=== PATIENT | female | born 1990 | race Caucasian/White ===

== ENCOUNTER 2016-11-28 10:28 | Emergency (ER) | payer MEDICAID, OTHER ==
--- NOTE | 2016-11-28 10:56 | EDPHY ---
H & P Stated Complaint: R Shoulder pain "dishes fell on" - Personal History LMP (Females 10-55): 15-21 Days Ago Current Tetanus Diphtheria and Acellular Pertussis (TDAP): Yes Tetanus Vaccine Date: Does not immunize - Medical/Surgical History Hx Asthma: No Hx Chronic Respiratory Disease: No Hx Diabetes: No Hx Cardiac Disease: No Hx Renal Disease: No Hx Cirrhosis: No Hx Alcoholism: No Hx HIV/AIDS: No Hx Splenectomy or Spleen Trauma: No Other PMH: PMH- bipolar, anxiety, hemrrhoids, depression, panic disorder. PSH- adnoids - Social History Smoking Status: Former smoker Time Seen by Provider: 11/28/16 10:43 HPI/ROS: CHIEF COMPLAINT: Right shoulder pain and bilateral foot laceration HISTORY OF PRESENT ILLNESS: 26-year-old female with up-to-date tetanus via private vehicle in the ER after her kitchen cabinet fell onto her right clavicle and shoulder and subsequently dishes and glasses broke and she sustained multiple puncture wounds to her feet stepped on glass when she was barefoot. Occurred shortly prior to arrival. Regarding her right shoulder she has reproducible pain with range of motion. No paresthesia. No head injury. No C-spine pain or injury. No back pain or injury. No dyspnea. PHYSICAL EXAM (Prior to examination, patient consented to physical exam, hands were washed and my usual and customary physical exam procedures followed) 1) GENERAL: Well-developed, well-nourished, alert and oriented. Appears uncomfortable 2) HEAD: Normocephalic, atraumatic 3) HEENT: Pupils equal, round, reactive to light bilaterally. Sclera anicteric. 4) NECK: Full range of motion, no meningeal signs. 5) MUSCULOSKELETAL: Right upper extremity: Erythema to the mid clavicle with associated tenderness to the mid clavicle and shoulder. No step-off deformity. Distal radial ulnar median nerve function intact with brisk capillary refill brisk pulses. Bilateral feet have multiple small puncture wounds including a puncture wound to the plantar aspect of her left foot. No active bleeding. No signs of infection. No underlying osseous pain. (Jeffrey,Liseth Palacios) Constitutional: Initial Vital Signs Temperature (C) 37.1 C 11/28/16 10:29 Heart Rate 107 H 11/28/16 10:29 Respiratory Rate 16 11/28/16 10:29 Blood Pressure 124/81 H 11/28/16 10:29 O2 Sat (%) 94 11/28/16 10:29 O2 Delivery Mode Room Air Allergies/Adverse Reactions: acetaminophen Allergy (Intermediate, Verified 11/28/16 10:34) Rash Home Medications: Medication Instructions Recorded Alprazolam 01/24/14 Cymbalta 01/24/14 Trileptal 01/24/14 Ondansetron Odt [Zofran Odt] 4 mg PO Q4PRN #8 tab 12/12/14 ALPRAZolam [Xanax] 11/28/16 Oxycodone HCl [Oxyir] 5 mg PO Q6 PRN #10 capsule 11/28/16 Medical Decision Making - Diagnostics Imaging: Imaging Impressions Shoulder X-Ray 11/28/16 10:44 Impression: Possible chronic biceps tendinitis. Otherwise negative. Foot X-Ray 11/28/16 10:53 Impression: Normal. No radiopaque glass identified. 2. Left Foot , 3 views History:Pain Findings: No fracture or malalignment is identified. No arthritis or soft tissue calcification or ossification. No erosive change. Overall mineralization is normal. There is a bipartite tibial sesamoid bone beneath the first metatarsal head. Impression: No source for pain identified. Foot X-Ray 11/28/16 10:53 Impression: Normal. No radiopaque glass identified. 2. Left Foot , 3 views History:Pain Findings: No fracture or malalignment is identified. No arthritis or soft tissue calcification or ossification. No erosive change. Overall mineralization is normal. There is a bipartite tibial sesamoid bone beneath the first metatarsal head. Impression: No source for pain identified. X-ray of the shoulder, bilateral feet interpreted by myself shows no definitive fracture, no radiopaque foreign body. (Liseth Murphy) Procedures: Procedure: Splint an upper extremity sling splint was applied by ER refinish technician. After application of the splint I returned and re-examined the patient. The splint was adequately immobilizing the joint and distal to the splint the patient's circulation and sensation were intact. Patient shows no signs of compartment syndrome. Was given orthopedic precautions. (Liesth Murphy) ED Course/Re-evaluation: Re-evaluation with serial exams. Discussed limitations of x-ray in the diagnosis of shoulder injury. Informed that non osseous injury not ruled out. Her wounds have been cleansed. She has been fitted for sling. Recommend orthopedic follow-up. Usual customary wound orthopedic precautions provided to the patient. She and her partner feel comfortable being discharged. (Liseth Murphy) I did not see this patient while she was in the emergency department. However her care was discussed with the PA while the patient was in department. I agree with treatment plan and management (Renzo Greenwood) - Data Points Medications Given: Discontinued Medications Ibuprofen (Motrin) 600 mg PO EDNOW ONE Stop: 11/28/16 11:05 Last Admin: 11/28/16 11:26 Dose: 600 mg Departure - Departure Disposition: Home, Routine, Self-Care Clinical Impression: Bilateral foot abrasions Right shoulder injury Qualifiers: Encounter type: initial encounter Qualified Code(s): S49.91XA - Unspecified injury of right shoulder and upper arm, initial encounter Condition: Good Instructions: Shoulder Sprain (ED), Abrasion (ED) Additional Instructions: Return to the ER immediately if you experience discoloration, have worsening pain, numbness, tingling, or any other symptoms that concern you. If you received x-rays in the emergency department today, be advised, that ligamentous , tendon, muscular, and other non-bony injury cannot be fully ruled out. Try to keep your affected extremity elevated above the level of your chest, and keep cold packs on the affected area, for the next 48 hours. Referrals: Bakari Swartz MD [Medical Doctor] - 5-7 days, call for appt. Prescriptions: Oxycodone HCl [Oxyir] 5 mg PO Q6 PRN #10 capsule PRN Reason: Pain, Severe Able To Take Po
[2016-11-28] MEDS ORDERED: IBUPROFEN 600 MG TAB PO ONE (11:04)
[2016-11-28 12:06] VITALS: BP 102/76; PULSE 94; RESP 18; TEMP 97.9; O2SAT 93
== END 2016-11-28 12:05 | disposition home or self-care (01) ==
DX: S90.812A Abrasion, left foot, initial encounter (principal); S90.811A Abrasion, right foot, initial encounter; S49.91XA Unspecified injury of right shoulder and upper arm, initial encounter; Z87.891 Personal history of nicotine dependence; W25.XXXA Contact with sharp glass, initial encounter; Y92.090 Kitchen in other non-institutional residence as the place of occurrence of the external cause
CPT/HCPCS: A4565

== ENCOUNTER 2017-06-22 11:15 | Emergency (ER) | payer MEDICAID ==
[2017-06-22 11:22] VITALS: BP 131/78; PULSE 94; RESP 18; TEMP 98.2; O2SAT 98
--- NOTE | 2017-06-22 13:01 | EDPHY ---
H & P Time Seen by Provider: 06/22/17 12:12 HPI/ROS: CHIEF COMPLAINT: Hemorrhoids HISTORY OF PRESENT ILLNESS: 27-year-old female presents with chief complaint persistent hemorrhoids. She has had hemorrhage for the past 5 years. She has associated pain with defecation and occasional bleeding when she has a bowel movement. She has been unable to obtain a specialist consultation, so presents to the emergency department for referral to a surgeon. She is vague lower abdominal discomfort today, somewhat similar to her usual discomfort. No fever , vomiting or constipation REVIEW OF SYSTEMS: Constitutional: No fever, no chills Eyes: No visual changes ENT: No sore throat Respiratory: No cough, no shortness of breath Cardiac: No chest pain Gastrointestinal: No nausea, no vomiting Genitourinary: No hematuria, no dysuria Musculoskeletal: No leg pain or swelling Skin: No rash Neurological: No headache, no weakness Psychiatric: No depression Past Medical/Surgical History: Denies Social History: Smoking Status: Former smoker Physical Exam: General Appearance: Alert, pleasant Eyes: Pupils equal and round, no conjunctival pallor ENT, Mouth: Mucous membranes moist Neck: Normal inspection Respiratory: Lungs are clear to auscultation Cardiovascular: Regular rate and rhythm Gastrointestinal: Abdomen is soft and nontender Rectal: Non thrombosed hemorrhoids present, no active bleeding or signs of recent bleeding. No anal fissure. Neurological: A&O, nonfocal, normal gait Skin: Warm and dry Extremities: normal inspection Psychiatric: Mood and affect normal Constitutional: Initial Vital Signs Temperature (C) 36.8 C 06/22/17 11:19 Heart Rate 94 06/22/17 11:19 Respiratory Rate 18 06/22/17 11:19 Blood Pressure 131/78 H 06/22/17 11:19 O2 Sat (%) 98 06/22/17 11:19 O2 Delivery Mode Room Air Allergies/Adverse Reactions: acetaminophen Allergy (Intermediate, Verified 06/22/17 11:18) Rash Home Medications: Medication Instructions Recorded Alprazolam 01/24/14 Cymbalta 01/24/14 Trileptal 01/24/14 ALPRAZolam [Xanax] 11/28/16 Departure - Departure Disposition: Home, Routine, Self-Care Clinical Impression: Hemorrhoids Qualifiers: Hemorrhoid type: first degree Qualified Code(s): K64.0 - First degree hemorrhoids Condition: Good Instructions: Hemorrhoids (ED), Rectal Bleeding (ED) Additional Instructions: Return for worsening symptoms or any concerns. Referrals: Lisandro Reis MD [Medical Doctor] - As per Instructions (Call to make an appointment.)
== END 2017-06-22 13:10 | disposition home or self-care (01) ==
DX: K64.0 First degree hemorrhoids (principal); Z87.891 Personal history of nicotine dependence

== ENCOUNTER 2017-07-15 22:37 | Observation (INO) | payer MEDICAID ==
--- NOTE | 2017-07-15 23:04 | EDPHY ---
H & P Stated Complaint: hemmorroid removal today, still in pain after 6 oxy tabs Time Seen by Provider: 07/15/17 22:51 HPI/ROS: Chief Complaint: Rectal pain HPI: 27-year-old woman who status place hemorrhoidectomy and fissure repair today by Dr. Reis. Patient states that the pain has been unbearable. She has taken 7 oxycodone and for ibuprofen without any relief. She has also been using warm tells to the area. No fevers or chills. No nausea or vomiting. Has light about of bleeding. No abdominal pain. ROS: 10 point Review of Systems is negative except as noted in the HPI. PMH: Depression Social History: No smoking, no alcohol, no recreational drug use Family History: non-contributory Physical Exam: Gen: Awake, Alert, No Distress HEENT: Nose: no rhinorrhea Eyes: PERRLA, EOMI Mouth: Moist mucosa Neck: Supple, no JVD Chest: nontender, lungs clear to auscultation Heart: S1, S2 normal, no murmur Abd: Soft, non-tender, no guarding Rectal: She has got ecchymosis and sutures in place from the repair. No active bleeding. There are no areas of fluctuance. There is no purulent discharge. There is no dehiscence. Back: no CVA tenderness, no midline tenderness Ext: no edema, non-tender Skin: no rash Neuro: CN II-XII intact, Sensation grossly intact, Strength 5/5 in bilateral upper and lower extremities - Personal History LMP (Females 10-55): 8-14 Days Ago Current Tetanus/Diphtheria Vaccine: Yes Current Tetanus Diphtheria and Acellular Pertussis (TDAP): Yes Tetanus Vaccine Date: Does not immunize - Medical/Surgical History Hx Asthma: No Hx Chronic Respiratory Disease: No Hx Diabetes: No Hx Cardiac Disease: No Hx Renal Disease: No Hx Cirrhosis: No Hx Alcoholism: No Hx HIV/AIDS: No Hx Splenectomy or Spleen Trauma: No Other PMH: PMH- bipolar, anxiety, hemrrhoids removal, depression, panic disorder ,. PSH- adnoids - Social History Smoking Status: Former smoker Constitutional: Initial Vital Signs Temperature (C) 36.9 C 07/15/17 22:39 Heart Rate 91 07/15/17 22:39 Respiratory Rate 18 07/15/17 22:39 Blood Pressure 101/89 H 07/15/17 22:39 O2 Sat (%) 100 07/15/17 22:39 O2 Delivery Mode Room Air Allergies/Adverse Reactions: acetaminophen Allergy (Intermediate, Verified 07/15/17 22:42) Rash latex Allergy (Verified 07/15/17 22:42) Home Medications: Medication Instructions Recorded Alprazolam 01/24/14 Cymbalta 01/24/14 Trileptal 01/24/14 ALPRAZolam [Xanax] 11/28/16 Medical Decision Making ED Course/Re-evaluation: Patient has had no relief with topical lidocaine or with IV morphine. Pain is still about any of at 10. I have discussed with Dr. Rosina Menendez, on-call for Dr. Reis. She will admit the patient to her service for pain control. - Data Points Medications Given: Discontinued Medications Lidocaine (Lidocaine 2% Jelly) 1 so TP EDNOW ONE Stop: 07/15/17 23:22 Last Admin: 07/15/17 23:25 Dose: 3 ml Morphine Sulfate (Morphine) 4 mg IVP EDNOW ONE Stop: 07/15/17 23:50 Last Admin: 07/16/17 00:19 Dose: 4 mg Departure - Departure Disposition: [facility] Inpatient Acute Clinical Impression: Postoperative pain Condition: Fair Referrals: NONE *PRIMARY CARE P,. [Primary Care Provider] - As per Instructions
[2017-07-15] MEDS ORDERED: LIDOCAINE 2% JELLY 5 ML TUBE TP ONE (23:21)
[2017-07-16] MEDS ORDERED: ZOLPIDEM TARTRATE 5 MG TAB PO PRN (00:41)
[2017-07-16] MEDS ORDERED: HYDROmorphONE/DILAUDID 1 MG/ML INJ IVP PRN (00:42)
[2017-07-16] MEDS ORDERED: LORazepam 0.5 MG TAB PO PRN (00:43)
[2017-07-16] MEDS ORDERED: ONDANSETRON 4 MG/2 ML VIAL IVP PRN (00:43)
[2017-07-16] MEDS ORDERED: LACTULOSE 20 GM/30 ML UDCUP PO PRN (00:43)
[2017-07-16] MEDS ORDERED: BISACODYL 10 MG SUPP PR PRN (00:43)
[2017-07-16] MEDS ORDERED: POLYETHYLENE GLYCOL 3350 17 GM PKT PO PRN (00:43)
[2017-07-16] MEDS ORDERED: MAGNESIUM HYDROXIDE 30 ML UDCUP PO PRN (00:43)
[2017-07-16] MEDS: KETOROLAC 15 MG/1 ML SDV IVP SCH ×3 (00:59→11:51)
[2017-07-16] MEDS: HYDROmorphONE/DILAUDID 2 MG TAB PO PRN ×4 (01:18→11:55)
[2017-07-16 07:22] VITALS: RESP 18
[2017-07-16] MEDS ORDERED: MAGNESIUM CITRATE 300 ML BOTTLE PO ONE (08:59)
[2017-07-16] MEDS ORDERED: SENNOSIDES/DOCUSATE SODIUM TAB PO SCH (09:00)
--- NOTE | 2017-07-16 09:43 | SOAPPROG ---
SOAP Progress Note Assessment/Plan: Assessment: 27yo female s/p recent hemorrhoid surgery, admitted for pain feel better, no BM yet since procedure, pain better controlled on dilaudid PE alert, very comfortable Plan: likely home today if pain controlled on oral meds saw pt with Dr Reis placed script in chart for possible d/c after lunch, ok to call me for d/c if pt doing well Frank [phone] 07/16/17 09:41 07/16/17 09:43 Objective: Vital Signs Temp Pulse Resp BP Pulse Ox 36.9 C 72 18 91/42 L 96 07/16/17 07:19 07/16/17 07:19 07/16/17 07:19 07/16/17 07:19 07/16/17 07:19 07/15/17 07/16/17 07/17/17 05:59 05:59 05:59 Intake Total 200 Balance 200 ICD10 Worksheet Patient Problems: Problems Problem Status Onset Postoperative pain Acute
[2017-07-16 11:07] VITALS: BP 96/50; PULSE 65; TEMP 98.1; O2SAT 95
--- NOTE | 2017-07-16 11:35 | ASMTCMCOM ---
CM Note CM Note Notes: Spoke w/RN, anticipate pt will dc home indepedent when medically stable. CM available for any changes. Date Signed: 07/16/2017 11:35 AM Electronically Signed By:Deborah Cook RN
--- NOTE | 2017-07-16 17:22 | ASDISCHSUM ---
Discharge Information Plan Status:Home with No Needs Medically Cleared to Leave: Discharge Date:07/16/2017 01:35 PM CM D/C Disposition: ADT D/C Disposition:Home, Routine, Self-Care Projected Discharge Date:07/16/2017 01:35 PM Transportation at D/C: Discharge Delay Reason: Follow-Up Date:07/16/2017 01:35 PM Discharge Slot: Final Diagnosis: Placement Information Patient Contact Information Contact Name:AMRIT Relationship: Address:[address] Work Phone: City:[place] Alternate Phone: State/Zip Code:[place] [address] Email: Financial Information Financial Class: Primary Plan Desc:[employer] Primary Plan Number:[id number] Secondary Plan Desc: Secondary Plan Number: Assessment Information [facility] CM Progress Note CM Note CM Note Notes: Spoke w/RN, anticipate pt will dc home indepedent when medically stable. CM available for any changes. Date Signed: 07/16/2017 11:35 AM Electronically Signed By:Deborah Cook RN Intervention Information
== END 2017-07-16 13:35 | disposition home or self-care (01) ==
LOC: F3E 07-16 01:33
PROVIDERS: ADMIT Surgery; ATTEND Surgery
DX: G89.18 Other acute postprocedural pain (principal)
CPT/HCPCS: G0378 ×2; 96374; J1885